=== PATIENT | male | born 2000 | race American Indian/Alaskan Native ===

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

== ENCOUNTER 2021-02-13 15:49 | Outpatient (REF) | payer MEDICAID, SELFPAY ==
[2021-02-13 16:05] LABS: COVID-19 Test Positive (Negative)
== END 2021-02-13 15:50 | disposition home or self-care (01) ==
LOC: HO.LAB 15:49
PROVIDERS: Visit Provider Internal Medicine
DX: Z20.822 Contact with and (suspected) exposure to COVID-19 (principal)
CPT/HCPCS: 36415; 87635; C9803

== ENCOUNTER 2023-08-26 08:52 | Emergency (ER) | payer SELFPAY ==
[2023-08-26 09:06] VITALS: BP 132/72; PULSE 77; RESP 15; TEMP 36.7; O2SAT 99; BMI 18.8
--- NOTE | 2023-08-26 09:13 | ED_ITS ---
HPI - Skin/Abscess/Foreign Bdy General Chief complaint: Skin/Abscess/Foreign Body Stated complaint: rash Time Seen by Provider: 08/26/23 09:02 Source: patient Mode of arrival: ambulatory Limitations: no limitations History of Present Illness HPI narrative: This is a 23-year-old male without significant medical history presenting to the emergency department for evaluation of itchy rash throughout body that is been ongoing for the past day and half, patient reports he is not sure how he got this rash, denies any allergies, no new products, denies recent illness. Patient tells me that he took Benadryl last night at approximately 19:00 it helped a little bit however rash is still present. This has never happened to him before. Patient denies nausea, vomiting, abdominal pain, chest pain, shortness of breath, changes in voice, drooling, headache, vision changes, dizziness and weakness. Nobody at home has a similar rash. Related Data Previous Rx's Medication Instructions Recorded ibuprofen 600 mg tablet 600 mg PO Q8H PRN pain #10 tabs 09/07/20 diphenhydramine HCl 25 mg capsule 25 mg PO TID PRN allergic reaction 08/26/23 (Benadryl) #20 caps epinephrine 0.3 mg/0.3 mL 0.3 mg (0.3 mL) IM Q4H PRN 08/26/23 injection, auto-injector (EpiPen anaphylaxis #2 ea 2-Raymond) prednisone 20 mg tablet 40 mg (2 x 20 mg) PO DAILY 5 days 08/26/23 #10 tabs Allergies Allergy/AdvReac Type Severity Reaction Status Date / Time No Known Allergies Allergy Verified 09/07/20 13:54 Review of Systems Review of Systems: Constitutional : No Weight loss, No Fever, No Chills, No Fatigue, No Malaise ENT/Mouth : No sore throat, No Rhinorrhea Eyes: No Eye Pain, No Swelling, No Redness Cardiovascular : No Chest Pain, No SOB, No Dyspnea on Exertion, No Orthopnea, No Edema, No Palpitations Respiratory : No Cough, No Sputum, No Wheezing Gastrointestinal : No Nausea, No Vomiting, No Diarrhea, No Constipation, No abdominal Pain, No Hematochezia, No Melena Genitourinary : No Dysuria, No Urinary Frequency, No Hematuria, Musculoskeletal : No joint pain, No Myalgias, No Joint Swelling Skin : No Skin Lesions, + rash Neuro : No Weakness, No Numbness, No Dizziness, No Headache Psych : No Anxiety/Panic, No Depression All other systems reviewed and are negative Yes all other systems are reviewed and are negative [facility] Past Medical History Attestation statement: The following information was validated with the patient. Source: old records reviewed and nursing notes reviewed Medical History No known health problems Social History Social History Advance Directives: No Advance Directives Information Provided: No Physical Exam Vital Signs: Vital Signs: Last Vital Signs Temp 98.1 F 08/26/23 09:06 Pulse 77 08/26/23 09:06 Resp 15 08/26/23 09:06 BP 132/72 08/26/23 09:06 Pulse Ox 99 08/26/23 09:06 O2 Del Method Room Air 08/26/23 09:06 BMI result Body Mass Index 18.8 vss Appearance: Alert.? Oriented X3.? No acute distress.? Speaking in full sentences controlling secretions well Head: Normocephalic, atraumatic, no step-offs or deformities Eyes: Pupils equal, round and reactive to light.? ENT: Pharynx normal.? Uvula midline. Neck: Normal inspection.? Neck supple.? CVS: Normal heart rate and rhythm.? Pulses normal.? Respiratory: No respiratory distress.? Breath sounds normal.? Abdomen: Soft and nontender.? Skin: Skin warm and dry.? Normal skin color.? Normal skin turgor.?+ scattered urticaria to upper, lower extremities, trunk and on palms not soles. No surrounding erythema or warmth. Extremities: No lower extremity edema.? No calf ttp. 5/5 strength to bilateral upper and lower extremities Neuro: Oriented X 3.? No motor deficit.? No sensory deficit. CN 2-12 intact Course Reevaluation(s) Reevaluation #1: Patient does not have concerns for STDs a syphilis test was obtained as he does have a rash affecting the palms of his hand, for this reason will hold on prophylactic treatment as patient has low suspicion and has no encounters with known syphilis positive status. Time: 09:30 Medical Decision Making Medical Decision Making [facility] Narrative: 917 23-year-old male presents with widespread rash that started a day and half ago, reports it is itchy. Took Benadryl with some relief. No known allergies. Physical exam significant for Skin warm and dry.? Normal skin color.? Normal skin turgor.?+ scattered urticaria to upper, lower extremities, trunk, and on palms not soles. No surrounding erythema or warmth. Concerns for acute allergic reaction versus dermatitis versus viral exanthem. I do not suspect necrotizing infection acute anaphylaxis, gangrene. Since this rash is affecting palms, will rule out syphilis. History and physical exam with low suspicion for [id number] virus based off physical exam. Plan at this time will discharge patient home with Benadryl and prednisone and have him follow-up with Allergy and immunology as patient does not have any known allergies. I did have a long conversation with patient of proper uses of an EpiPen as patient does not know what he is allergic to I think it is responsible to discharge him home with an EpiPen in case symptoms worsen. Educated patient on diagnosis and treatment plan, answered all question, patient verbalizes understanding. At this time patient will be discharged home, advised to return with new or worsening symptoms. Educated on worrisome signs and symptoms and when to return. At this time I feel comfortable discharge home. Syphilis screen is pending. Differential Diagnosis Differential Diagnoses: The differential diagnosis associated with the presentation includes Concerns for acute allergic reaction versus dermatitis versus viral exanthem. I do not suspect necrotizing infection acute anaphylaxis, gangrene. Admission/Observation Consideration of admission/observation: Escalation of care including admission/observation [facility] Lab Data Labs: No indication Prescription Management I considered prescription management with: Other (prednisone, epi, benadryl ) Chronic Conditions Patient?s care impacted by: Other (No pMHX) Critical Care Time Critical Care Time Critical Care Time: No Discharge Plan Discharge Clinical Impression: Urticaria, Rash Patient Disposition: Home, Self-Care Instructions: Urticaria (ED) Additional Instructions: Take your medications as prescribed. If you were prescribed antibiotics today, it is important that you take your medication to their entirety, do not skip any doses, do not finish them early. Follow-up with your primary care provider this week. Return to the emergency department with new or worsening symptoms. Such as fevers, chills, chest pain, shortness of breath, nausea, vomiting, dizziness, headache, vision changes, lethargy In case of emergency call 911 An epipen has been sent to your pharmacy I suspect your presentation is secondary to an allergic reaction, symptoms could worse and you may need to use this life saving measure. Only use if you experience throat closing, difficulty breathing or trouble speaking or any other signs of anaphylaxis as discussed. If he use an EpiPen it is important you seek medical attention immediately as you can have a rebound effect. Prescriptions: New prednisone 20 mg tablet 40 mg PO DAILY 5 Days Qty: 10 0RF diphenhydramine HCl [Benadryl] 25 mg capsule 25 mg PO TID PRN (Reason: allergic reaction) Qty: 20 0RF epinephrine [EpiPen 2-Raymond] 0.3 mg/0.3 mL auto-injector 0.3 mg IM Q4H PRN (Reason: anaphylaxis) Qty: 2 0RF No Action ibuprofen 600 mg tablet 600 mg PO Q8H PRN (Reason: pain) Qty: 10 0RF [facility]errals[facility]] - 3 days Stand Alone Forms: Work/School Release
[2023-08-26 10:31] LABS: Syphilis Screen Nonreactive (Nonreactive)
== END 2023-08-26 09:48 | disposition home or self-care (01) ==
PROVIDERS: Physician Assistant; Emergency Provider Emergency Medicine
DX: L50.0 Allergic urticaria (principal); Z79.899 Other long term (current) drug therapy
CPT/HCPCS: 36415; 86780; 99283